=== PATIENT | male | born 1970 | race African-American/Black ===

== ENCOUNTER 2025-02-01 08:18 | Emergency (ER) | payer MEDICAID, OTHER ==
[~2025-02-01] VITALS: Ht 193 cm; Wt 80.6 kg
[2025-02-01 08:37] VITALS: TEMP 36.7; O2SAT 98
[2025-02-01] MEDS: PREDNISONE 20MG TABLET PO ONE (11:50)
[2025-02-01] MEDS ORDERED: TC1C15 TP (11:50)
[2025-02-01] MEDS ORDERED: SULF1TAB48 MT (11:50)
[2025-02-01 12:46] VITALS: BP 179/90; PULSE 76; RESP 14; O2SAT 100
== END 2025-02-01 12:48 | disposition home or self-care (01) ==
LOC: ER 08:18
DX: L30.9 Dermatitis, unspecified (principal); I10 Essential (primary) hypertension; Z79.899 Other long term (current) drug therapy
CPT/HCPCS: 99283; J7512